=== PATIENT | male | born 1965 | race Caucasian/White ===

== ENCOUNTER → 2018-11-02 | Outpatient (CLI) | payer MEDICAID ==
--- NOTE | 2018-11-03 22:06 | ECGEPIP ---
Stationary ECG Study [facility] Test Date: 2018-11-02 Pat Name: MICHAEL BELLAMY Department: Room: - Gender: M Environmental Engineer: JOSE : [id number] Requested By: NUNU BURTON Order Number: [id number] Reading MD: Arnav Farrar Measurements Intervals Michael Rate: 57 P: 63 [place]: 141 QRS: 57 QRSD: 92 T: 74 QT: 406 QTc: 398 Interpretive Statements SINUS BRADYCARDIA NO PRIOR IN THE SYSTEM Electronically Signed On 11-03-2018 22:06:11 EST by Arnav Farrar
== END ==
LOC: M EKG 10:34
PROVIDERS: ATTEND Anesthesiology
DX: Z01.818 Encounter for other preprocedural examination (principal)

== ENCOUNTER 2018-11-04 08:04 | Day surgery (SDC) | payer MEDICAID ==
[2018-11-04] MEDS: LR 1,000 ML IV (08:46)
[2018-11-04] MEDS ORDERED: ROCURONIUM BROMIDE 50 MG/5 ML VIAL As Ordered (09:00)
[2018-11-04] MEDS ORDERED: PROPOFOL 200 MG/20 ML VIAL As Ordered (09:00)
[2018-11-04] MEDS ORDERED: LIDOCAINE 2% INJ 100 MG/5 ML SDV (FOR ANES.) As Ordered (09:00)
[2018-11-04] MEDS ORDERED: MIDAZOLAM INJ 2 MG/2 ML VIAL (J2250) As Ordered (09:01)
[2018-11-04] MEDS ORDERED: fentaNYL 100 MCG/2 ML INJECTION (J3010) As Ordered ×2 (09:01→10:01)
[2018-11-04] MEDS ORDERED: dexameTHASONE 4 MG/ML 1ML VIAL (J1100) As Ordered ×2 (10:02)
[2018-11-04] MEDS: ceFAZolin SOD 1 GM in D5W MINI-BAG PLUS 50 ML IV (10:05)
[2018-11-04] MEDS: BUPIVACAINE/EPIN 0.25% 30 ML VIAL As Ordered (10:50)
[2018-11-04] MEDS ORDERED: KETOROLAC 60 MG/2 ML VIAL (J1885) As Ordered (11:01)
[2018-11-04] MEDS: fentaNYL 100 MCG/2 ML INJECTION (J3010) IV ×4 (11:40→12:02)
[2018-11-04] MEDS: ONDANSETRON 4MG/2ML VIAL (J2405) IV (11:41)
[2018-11-04] MEDS ORDERED: NORCO, ANEXSIA 5/325MG TABLET (HYDROcodone/ACETAMINOPHEN) PO (11:45)
[2018-11-04] MEDS ORDERED: METOCLOPRAMIDE INJ 10MG/2ML VIAL (J2765) IV (11:45)
[2018-11-04] MEDS ORDERED: MORPHINE 4 MG/ML 1ML VIAL/SYRINGE (J2270) IV (11:45)
[2018-11-04] MEDS ORDERED: LR 1,000 ML IV ×2 (11:45)
[2018-11-04] MEDS ORDERED: ONDANSETRON 4MG/2ML VIAL (J2405) IV (11:45)
[2018-11-04] MEDS: PERCOCET 5MG/325MG TAB PO ×2 (11:47→12:11)
== END 2018-11-04 13:52 | disposition home or self-care (01) ==
LOC: M SDC 08:04
DX: K40.90 Unilateral inguinal hernia, without obstruction or gangrene, not specified as recurrent (principal)
CPT/HCPCS: 49650

== ENCOUNTER → 2024-11-20 | Outpatient (CLI) | payer MEDICAID, SELFPAY | LOC: M WUC 15:06 | PROVIDERS: ATTEND Nurse Practitioner Family | DX: M25.541 Pain in joints of right hand (principal) ==

== ENCOUNTER → 2025-07-23 | Outpatient (REF) | payer OTHER ==
[2025-07-23 18:11] LABS: APPEARANCE, URINE CLEAR (CLEAR); BACTERIA, URINE AUTO NEGATIVE (NEGATIVE); BILIRUBIN, URINE AUTO NEGATIVE (NEGATIVE); BLOOD, URINE BLOOD NEGATIVE (NEGATIVE); GLUCOSE, URINE (UA) AUTO NEGATIVE (NEGATIVE); KETONE, URINE AUTO NEGATIVE (NEGATIVE); LEUKOCYTE ESTERASE, URINE AUTO NEGATIVE (NEGATIVE); NITRITE, URINE AUTO NEGATIVE (NEGATIVE); PROTEIN, URINE AUTO NEGATIVE (NEGATIVE); RBC, URINE AUTO 0 /HPF (0-3); SPECIFIC GRAVITY URINE AUTO 1.006 (1.002-1.035); SQUAMOUS EPITHELIAL CELL UR AU 0 /HPF (0-6); UROBILINOGEN, URINE AUTO 0.2 mg/dL (0.0-2.0); WBC, URINE AUTO 0 /HPF (0-3)
[2025-07-23 18:16] LABS: BASO # 0.1 10^3/uL (0.0-0.2); BASO % 0.8 % (0.0-1.0); EOS # 0.3 10^3/uL (0.0-0.5); EOS % 2.7 % (0.0-3.0); LYMPH # 1.6 10^3/uL (1.5-5.0); LYMPH % 13.8 % (24.0-44.0); MONO # 0.9 10^3/uL (0.0-0.8); MONO % 7.5 % (2.0-8.0); NEUTROPHILS # 8.5 10^3/uL (1.5-8.5); NEUTROPHILS % 74.8 % (36.0-66.0); PLATELET COUNT, AUTOMATED 215 10^3/uL (150-450)
[2025-07-23 18:22] LABS: ALT/SGPT 25.0 U/L (7.0-40); AST/SGOT 14.0 U/L (<34); CALCIUM LEVEL 9.7 MG/DL (8.5-10.1); CARBON DIOXIDE LEVEL 27.0 MMOL/L (20-31); CHLORIDE LEVEL 108.0 MMOL/L (98-107); CHOLESTEROL LEVEL 224.0 MG/DL (<200); CHOLESTEROL RISK RATIO 5.01 (<5); CREATININE FOR GFR 1.18 MG/DL (0.70-1.30); GLOMERULAR FILTRATION RATE 72.0 (>56); LDL CHOLESTEROL 138.5 MG/DL (<100); NON-HDL-C 179.3 MG/DL; POTASSIUM SERUM 4.6 MMOL/L (3.5-5.1); PSA SCREENING 1.61 NG/ML (< 4.00); SODIUM LEVEL 141.0 MMOL/L (136-145); TRIGLYCERIDES LEVEL 204.0 MG/DL (<150)
[2025-07-23 19:08] LABS: ESTIMATED AVERAGE GLUCOSE 114.0 MG/DL (60-110)
== END ==
LOC: M SFHCLERA 11:57
PROVIDERS: ATTEND Internal Medicine
DX: Z00.01 Encounter for general adult medical examination with abnormal findings (principal)
CPT/HCPCS: 80053; 80061; 81001; 83036; 85025; G0103

== ENCOUNTER → 2025-11-05 | Outpatient (CLI) | payer OTHER | LOC: M CARPUL 07:40 | PROVIDERS: ATTEND Physician Assistant | DX: R07.9 Chest pain, unspecified (principal); R94.31 Abnormal electrocardiogram [ECG] [EKG] ==